=== PATIENT | male | born 1990 | race Caucasian/White ===

== ENCOUNTER 2019-07-26 20:52 | Emergency (ER) | payer MEDICAID ==
--- OUTSIDE RECORDS SUMMARY | 2019-07-26 21:26 | XMS REPORT | Continuity of Care Document ---
:1990 Author Organization [facility] Care Team Providers Name Role Phone SRI AL Consulting Physician SRI AL Primary Care Physician IJEOMA JACQUES Admitting Physician IJEOMA JACQUES Attending Physician Allergies and Intolerances No Known Drug Allergies Medications RxNorm Medication Dose Route Instructions Start Date End Date Status 643891 aripiprazole 5 MG 5 mg oral orally every Active Oral Tablet morning 424927 benztropine 1 mg oral orally 2 times Active mesylate 1 MG Oral per day Tablet 837554 Clomipramine 50 mg oral orally daily Active Hydrochloride 50 MG Oral Capsule 39824 Docusate 100 mg oral orally 2 times Active per day 3640 Doxycycline 100 mg oral orally every Active evening 5492 Hydrocortisone 1 applic rectal rectally 3 times Active per day as needed. (as needed for pain) 4170874 hydrocortisone 30 mg rectal rectally 2 times Active acetate 30 MG per day Rectal Suppository 85337 lamotrigine 50 mg oral orally 2 times Active per day 55624 levothyroxine 50 mcg oral orally daily Active 30249 [place] Carbonate 1200 mg oral orally every day Active at bedtime 974884 Propranolol 10 mg oral orally 2 times Active Hydrochloride 10 MG per day Oral Tablet 934077 Risperidone 1 MG 1 mg oral orally every day Active Oral Tablet at bedtime 37262 Vitamin B 12 1000 mcg oral orally every Active morning Medications At Time Of Discharge RxNorm Medication Dose Route Instructions Start Date End Date Status 052294 aripiprazole 5 MG 5 mg oral orally every Active Oral Tablet morning 440735 benztropine 1 mg oral orally 2 times Active mesylate 1 MG Oral per day Tablet 803845 Clomipramine 50 mg oral orally daily Active Hydrochloride 50 MG Oral Capsule 64304 Docusate 100 mg oral orally 2 times Active per day 3640 Doxycycline 100 mg oral orally every Active evening 5492 Hydrocortisone 1 applic rectal rectally 3 times Active per day as needed. (as needed for pain) 5388409 hydrocortisone 30 mg rectal rectally 2 times Active acetate 30 MG per day Rectal Suppository 24926 lamotrigine 50 mg oral orally 2 times Active per day 83992 levothyroxine 50 mcg oral orally daily Active 06156 [place] Carbonate 1200 mg oral orally every day Active at bedtime 166209 Propranolol 10 mg oral orally 2 times Active Hydrochloride 10 MG per day Oral Tablet 665518 Risperidone 1 MG 1 mg oral orally every day Active Oral Tablet at bedtime 16561 Vitamin B 12 1000 mcg oral orally every Active morning Problems Code Code System Problem Name Start Date End Date Status 522195848 SNOMED-CT Abrasion 01/29/2013 U Active 20347106 SNOMED-CT Mental retardation U U Active 28485897 SNOMED-CT Depressive disorder U Active MUILTP[place] HANDICAPS U Active Procedures No data in the system Results Laboratory Results Order: LITHIUM Specimen Source: Body Site : Legend: (G,H) = High, (GG,HH,CH,#H) = Above High Threshold, (#,L) = Low, (##, CL,#L,LL) = Below Low Threshold, (C,CC,CA,#A,A) = Abnormal LOINC Test Result Flag Range Units Date 1LITHIUM 1.2 0.0-1.5 mmol/L 07/16/2019 11:20 Performing Lab Footnotes:[facility] - [id number] - [address] [place] [address] GABINO BEJARANO Order: VALPROIC ACID Specimen Source: Body Site: Legend: (G,H) = High, (GG,HH,CH,#H) = Above High Threshold, (#,L) = Low, (##,CL,#L,LL) = Below Low Threshold, (C,CC,CA,#A,A) = Abnormal LOINC Test Result Flag Range Units Date 1VALPROIC ACID 47.9 L 50.0-100.0 ug/mL 07/16/2019 11:20 Performing Lab Footnotes:[facility] - [id number] - [address] [place] [address] GABINO Pavon RICCIOMD1 Social History Code Code System Social History Observation Description Dates Observed 323317025 SNOMED CT Current Smoking Status Never smoker UNK AdministrativeGender Sex Assigned At Unknown Vital Signs No data in the system Goals Section No data in the system Health Concerns No data in the systemEncounter Diagnosis Date Code Code System Diagnosis Status Z79.899 ICD10 OT [facility] CURRENT DRUG THERAPY Active Advance Directives HEALTH CARE PROXY Directive Type Effective Date Cashier Ticket Selling Notes Supporting Document Name Address Phone No Directive 02/13/2018 Not Specified Not Specified Not Specified Tish Estrada No Type specified 3:21:00 PM (mother) [phone] *RHIO - CONSENT IS YES Directive Type Effective Date Cashier Ticket Selling Notes Supporting Document Name Address Phone No Directive Type 02/17/2015 7:56:35 Not Specified Not Specified Not Specified None No specified AM Encounters Encounter Diagnosis Location Date OTH [employer]MENT [employer]IC CURRENT DRUG THERAPY [facility] 07/16/2019 Family History No Significant Family History Functional Status No data in the system Immunizations No data in the system Medical Equipment No data in the system Mental Status No data in the system Assessment and Plan Assessments No data in the systemPlan Of Treatment No data in the systemPending Tests No data in the system Hospital Discharge Instructions No data in the system Reason for Visit No data in the system
--- OUTSIDE RECORDS SUMMARY | 2019-07-26 21:26 | XMS REPORT | Continuity of Care Document ---
:1990 Author Organization [facility] Care Team Providers Name Role Phone SRI AL Consulting Physician SRI AL Primary Care Physician IJEOMA JACQUES Admitting Physician IJEOMA JACQUES Attending Physician Allergies and Intolerances No Allergy Data in the System Medications RxNorm Medication Dose Route Instructions Start Date End Date Status 047845 aripiprazole 5 MG 5 mg oral orally every Active Oral Tablet morning 362647 benztropine 1 mg oral orally 2 times Active mesylate 1 MG Oral per day Tablet 217725 Clomipramine 50 mg oral orally daily Active Hydrochloride 50 MG Oral Capsule 54590 Docusate 100 mg oral orally 2 times Active per day 3640 Doxycycline 100 mg oral orally every Active evening 5492 Hydrocortisone 1 applic rectal rectally 3 times Active per day as needed. (as needed for pain) 6194676 hydrocortisone 30 mg rectal rectally 2 times Active acetate 30 MG per day Rectal Suppository 83800 lamotrigine 50 mg oral orally 2 times Active per day 30788 levothyroxine 50 mcg oral orally daily Active 50290 [place] Carbonate 1200 mg oral orally every day Active at bedtime 780161 Propranolol 10 mg oral orally 2 times Active Hydrochloride 10 MG per day Oral Tablet 307160 Risperidone 1 MG 1 mg oral orally every day Active Oral Tablet at bedtime 87563 Vitamin B 12 1000 mcg oral orally every Active morning Medications At Time Of Discharge RxNorm Medication Dose Route Instructions Start Date End Date Status 680783 aripiprazole 5 MG 5 mg oral orally every Active Oral Tablet morning 854772 benztropine 1 mg oral orally 2 times Active mesylate 1 MG Oral per day Tablet 959844 Clomipramine 50 mg oral orally daily Active Hydrochloride 50 MG Oral Capsule 09928 Docusate 100 mg oral orally 2 times Active per day 3640 Doxycycline 100 mg oral orally every Active evening 5492 Hydrocortisone 1 applic rectal rectally 3 times Active per day as needed. (as needed for pain) 4775698 hydrocortisone 30 mg rectal rectally 2 times Active acetate 30 MG per day Rectal Suppository 26529 lamotrigine 50 mg oral orally 2 times Active per day 69751 levothyroxine 50 mcg oral orally daily Active 34170 [place] Carbonate 1200 mg oral orally every day Active at bedtime 620833 Propranolol 10 mg oral orally 2 times Active Hydrochloride 10 MG per day Oral Tablet 789099 Risperidone 1 MG 1 mg oral orally every day Active Oral Tablet at bedtime 69227 Vitamin B 12 1000 mcg oral orally every Active morning Problems Code Code System Problem Name Start Date End Date Status 731541326 SNOMED-CT Abrasion 01/29/2013 U Active 72339246 SNOMED-CT Mental retardation U U Active 23868681 SNOMED-CT Depressive disorder U Active MUILTPLE HANDICAPS U Active Procedures No data in the system Results Laboratory Results Order: CBC Specimen Source: Body Site: Legend: (G,H) = High, (GG,HH,CH,#H) = Above High Threshold, (#,L) = Low, (##,CL, #L,LL) = Below Low Threshold, (C,CC,CA,#A,A) = Abnormal LOINC Test Result Flag Range Units Date 6689-08 1WBC # Bld Auto 7.8 4.8-10.8 K/uL 05/26/2019 07:45 26265-9 1RBC # Bld 3.89 L 4.60-6.20 M/uL 05/26/2019 07:45 718-7 1Hgb Bld-mCnc 12.4 L 13.5-18.0 gm/dL 05/26/2019 07:45 4544-3 1Hct VFr Bld Auto 37.7 L 41.0-53.0 % 05/26/2019 07:45 787-2 1MCV RBC Auto 97.0 80.0-100.0 fL 05/26/2019 07:45 35311-8 1MCHC RBC-mCnc 32.7 30.0-36.5 % 05/26/2019 07:45 47268-5 1MCH RBC Qn 31.8 27.0-34.0 pg 05/26/2019 07:45 77709-2 1RDW RBC 11.9 11.0-15.0 % 05/26/2019 07:45 777-3 1Platelet # Bld Auto 381 130-450 K/uL 05/26/2019 07:45 24000-8 1PMV Bld Auto 6.1 6.0-12.0 fL 05/26/2019 07:45 Performing Lab Footnotes:[facility] - [id number] - [address] [place] [address] GABINO BEJARANO Order: LITHIUM Specimen Source: Body Site: Legend: (G,H) = High, (GG,HH ,CH,#H) = Above High Threshold, (#,L) = Low, (##,CL,#L,LL) = Below Low Threshold , (C,CC,CA,#A,A) = Abnormal LOINC Test Result Flag Range Units Date 3719-2 1Lithium SerPl-mCnc 1.2 0.0-1.5 mmol/L 05/26/2019 07:45 Performing Lab Footnotes:[facility] - [id number] - [address] [place] [address] GABINO BEJARANO Order: TSH Specimen Source: Body Site: Legend: (G,H) = High, (GG,HH,CH, #H) = Above High Threshold, (#,L) = Low, (##,CL,#L,LL) = Below Low Threshold, (C ,CC,CA,#A,A) = Abnormal LOINC Test Result Flag Range Units Date 3016-3 1TSH SerPl-aCnc 2.25 0.34-4.82 uIU/mL 05/26/2019 07:45 Performing Lab Footnotes:[facility] - [id number] - [address] [place] [address] GABINO Pavon RICCIOMD1 Social History Code Code System Social History Observation Description Dates Observed 796348655 SNOMED CT Current Smoking Status Never smoker UNK AdministrativeGender Sex Assigned At Unknown Vital Signs No data in the system Goals Section No data in the system Health Concerns No data in the systemEncounter Diagnosis Date Code Code System Diagnosis Status Z79.899 ICD10 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 Advance Directives HEALTH CARE PROXY Directive Type Effective Date Conference Planner Notes Supporting Document Name Address Phone No Directive 02/13/2018 Not Specified Not Specified Not Specified Tish Estrada No Type specified 3:21:00 PM (mother) [phone] *RHIO - CONSENT IS YES Directive Type Effective Date Conference Planner Notes Supporting Document Name Address Phone No Directive Type 02/17/2015 7:56:35 Not Specified Not Specified Not Specified None No specified AM Encounters Encounter Diagnosis Location Date OTH ALF CURRENT DRUG THERAPY [facility] 05/26/2019 Family History No Significant Family History Functional [...]
[2019-07-26 22:36] LABS: Urine Appearance Clear; Urine Bilirubin Negative (Negative); Urine Blood Negative (Negative); Urine Color Yellow; Urine Glucose Negative (Negative); Urine Ketones Negative (Negative); Urine Nitrite Negative (Negative); Urine Protein Negative (Negative); Urine Specific Gravity 1.009 (1.010-1.030); Urine Urobilinogen Negative (Negative)
[2019-07-26 22:47] LABS: Urine Benzodiazepine Screen None Detected (None Detect); Urine Opiates Screen None Detected (None Detect)
[2019-07-26 23:24] LABS: ABS Eosinophils 0.4 10^3/ul (0-0.6); ABS Monocytes 0.6 10^3/ul (0-0.8); ABS Neutrophils 4.4 10^3/ul (1.5-7.7); Eosinophil % 4.7 %; Hematocrit 33 % (42-52); Hemoglobin 11.6 g/dL (14.0-18.0); Lymphocyte % 27.4 %; Mean Corpuscular HGB Conc 35 g/dL (31-36); Mean Corpuscular Hemoglobin 33 pg (27-31); Mean Corpuscular Volume 96 fL (80-94); Mean Platelet Volume 6.2 fL (7.4-10.4); Platelet Count 296 10^3/uL (150-450); Red Blood Count 3.49 10^6 /uL (4.18-5.48); Red Cell Distribution Width 14 % (10-15); White Blood Count 7.4 10^3/uL (3.5-10.8)
[2019-07-26 23:33] LABS: Albumin 4.2 g/dL (3.2-5.2); CO2 Carbon Dioxide 24 mmol/L (22-32); Calcium 9.1 mg/dL (8.6-10.3); Chloride 104 mmol/L (101-111); Sodium 135 mmol/L (135-145)
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
[2019-07-26 23:38] LABS: Acetaminophen < 15 mcg/mL; Alcohol < 10 mg/dL (<10); Salicylate < 2.50 mg/dL (<30)
[2019-07-26 23:39] LABS: ALT 18 U/L (7-52); Albumin/Globulin Ratio 1.8 (1-3); Alkaline Phosphatase 69 U/L (34-104); BUN/Creatinine Ratio 12.5 (8-20); Blood Urea Nitrogen 12 mg/dL (6-24); EGFR African American 110.5 (>60); EGFR Non-African American 91.4 (>60); Globulin 2.3 g/dL (2-4); Glucose 101 mg/dL (70-100); Total Protein 6.5 g/dL (6.4-8.9)
[2019-07-26 23:41] LABS: Anion Gap 7 mmol/L (2-11)
[2019-07-27 00:07] LABS: TSH (Thyroid Stimulating Horm) 1.48 mcIU/mL (0.34-5.60)
--- NOTE | 2019-07-27 09:42 | ED ---
Progress - Progress Note Progress Note: Receiving sign-out from Dr. Erwin at shift change 0700 07/27/[address] Roberts will write the remaining medication orders. Patient became agitated while in the annex and so he was moved back to ED room 7. Gave patient back his daily scheduled psychiatric medications. Patient will be signed out from Dr. Belen Lindsay to Dr. Neymar Sahu at shfit change on 07/27/2019 at 1900 pending MH transfer. Re-Evaluation - Re-Evaluation First Eval Re-Evaluation Time: 17:13 Comment: Patient was agitated and has been moved back to ED room 7. I will give the patient his scheduled psychiatric medications. Course/Dx - Diagnoses Provider Diagnoses: Aggressive outburst, Homicidal ideation - Provider Notifications Time Discussed With Above Provider: 01:00 Instructed by Provider To: Other - Dr. Wahl and mental health staff have evaluated the patient and have determined him to be appropriate for MHU hold at this time since they were initially going to discharge the patient but I felt that the patient needs to stay as he stated homicidal ideation; pending re-eavl in the morning. Discharge ED - Sign-Out/Discharge Documenting (check all that apply): Sign-Out Patient, Receiving Sign-Out Signing out patient TO: Neymar Sahu Receiving patient FROM: Lisa Erwin - Discharge Plan Condition: Stable Referrals: Dr. justine [Other] (follow up with Dr. Sanz in morning regarding pt. recent aggression) Ting ARRIETA,Joni Dinh [Primary Care Provider] - - Attestation Statements Document Initiated by Scribe: Yes Documenting Scribe: Александр Rao Provider For Whom Nathanielibe is Documenting (Include Credential): Belen Lindsay MD Scribe Attestation: Александр Simmons, scribed for Belen Lindsay MD on 07/27/19 at 1855. Status of Scribe Document: Ready
[2019-07-27] MEDS ORDERED: Divalproex DR TAB(*) 250 MG PO ONE (10:10)
--- NOTE | 2019-07-27 11:12 | PN ---
ED Psychiatric Progress Note Date of Service: 07/27/19 Subjective: ED day #1 for this 29 y.o. single, white, intellectually disabled male brought in by his parents due to recent violent behavior, both at home and in his day treatment program. The patient has significant intellectual limitations and cannot give much history. Objective: young white male with eye glasses and blue patient scrubs sitting in annex room ; poor articulation and difficult to understand; denies SI or HI Assessment: Unspecified Impulse Control DO Plan: The patient requires services through [facility]. We are working with his case investigator to find appropriate placement, as parents unwilling to allow him to return home at this time. D/C to developmentally appropriate facility once this can be arranged. Vital Signs Temp Pulse Resp BP Pulse Ox 99 F 94 15 108/58 100 07/27/19 07:15 07/27/19 07:15 07/26/19 20:59 07/27/19 07:15 07/27/19 07:15 Lab Results - Entire Visit 07/26/19 07/26/19 07/26/19 23:17 23:17 22:20 WBC 7.4 RBC 3.49 L Hgb 11.6 L Hct 33 L MCV 96 H MCH 33 H MCHC 35 RDW 14 Plt Count 296 MPV 6.2 L Neut % (Auto) 59.5 Lymph % (Auto) 27.4 [place] % (Auto) 8.0 Eos % (Auto) 4.7 Baso % (Auto) 0.4 Absolute Neuts (auto) 4.4 Absolute Lymphs (auto) 2.0 Absolute Monos (auto) 0.6 Absolute Eos (auto) 0.4 Absolute Basos (auto) 0.0 Absolute Nucleated RBC 0.0 Nucleated RBC % 0.0 Sodium 135 Potassium TNP Chloride 104 Carbon Dioxide 24 Anion Gap 7 BUN 12 Creatinine 0.96 Est GFR ( Amer) 110.5 Est GFR (Non-Af Amer) 91.4 BUN/Creatinine Ratio 12.5 Glucose 101 H Calcium 9.1 Total Bilirubin 0.30 AST TNP ALT 18 Alkaline Phosphatase 69 Total Protein 6.5 Albumin 4.2 Globulin 2.3 Albumin/Globulin Ratio 1.8 TSH 1.48 Urine Color Urine Appearance Urine pH Ur Specific [place] Urine Protein Urine Ketones Urine Blood Urine Nitrate Urine Bilirubin Urine Urobilinogen Ur Leukocyte Esterase Urine Glucose Salicylates < 2.50 Urine Opiates Screen None detected Acetaminophen < 15 Ur Barbiturates Screen None detected Ur Phencyclidine Scrn None detected Ur Amphetamines Screen None detected U Benzodiazepines Scrn None detected Urine Cocaine Screen None detected U Cannabinoids Screen None detected Serum Alcohol < 10 07/26/19 22:20 WBC RBC Hgb Hct MCV MCH MCHC RDW Plt Count MPV Neut % (Auto) Lymph % (Auto) [place] % (Auto) Eos % (Auto) Baso % (Auto) Absolute Neuts (auto) Absolute Lymphs (auto) Absolute Monos (auto) Absolute Eos (auto) Absolute Basos (auto) Absolute Nucleated RBC Nucleated RBC % Sodium Potassium Chloride Carbon Dioxide Anion Gap BUN Creatinine Est GFR ( Amer) Est GFR (Non-Af Amer) BUN/Creatinine Ratio Glucose Calcium Total Bilirubin AST ALT Alkaline Phosphatase Total Protein Albumin Globulin Albumin/Globulin Ratio TSH Urine Color Yellow Urine Appearance Clear Urine pH 7.0 Ur Specific [place] 1.009 L Urine Protein Negative Urine Ketones Negative Urine Blood Negative Urine Nitrate Negative Urine Bilirubin Negative Urine Urobilinogen Negative Ur Leukocyte Esterase Negative Urine Glucose Negative Salicylates Urine Opiates Screen Acetaminophen Ur Barbiturates Screen Ur Phencyclidine Scrn Ur Amphetamines Screen U Benzodiazepines Scrn Urine Cocaine Screen U Cannabinoids Screen Serum Alcohol
[2019-07-27] MEDS ORDERED: ARIPiprazole TAB* 5 MG PO SCH (12:00)
[2019-07-27] MEDS: risperiDONE TAB* 1 MG PO SCH ×2 (17:21→23:19)
[2019-07-27] MEDS: Divalproex DR TAB(*) 500 MG PO SCH ×2 (17:21→23:19)
[2019-07-27 17:41] LABS: Lithium 0.54 mmol/L (0.6-1.2)
[2019-07-27] MEDS: lamoTRIgine TAB(*) 100 MG PO SCH ×2 (18:09→23:19)
[2019-07-27] MEDS ORDERED: Ziprasidone IM INJ* 20 MG/ML VIAL IM ONE (20:42)
[2019-07-27] MEDS ORDERED: LORazepam INJ* 2 MG/ML 1 ML VIAL IM ONE (20:42)
[2019-07-27] MEDS ORDERED: Lorazepam PYXIS KEY PRN (20:42)
--- NOTE | 2019-07-27 20:47 | ED ---
Progress - Progress Note Progress Note: The patient is a sign-out from Dr. Belen Lindsay MD, to Dr. Neymar Sahu MD , at change of shift at 1900 on 07/27/2019, pending transfer to facility for further psychiatric care. Mental health staff state that the patient cannot go to respite care at [facility], but he is unable to obtain placement at this time. They recommend medication interventions until a plan is in place. Dr. Dimas from psychiatry recommends giving the patient 20mg Geodon and 2mg Ativan to calm the patient down until he can speak with him again tomorrow. The patient is a sign-out from Dr. Neymar Sahu MD, to Dr. Micha Stafford DO, at change of shift at 0700 on 07/28/2019, pending transfer to facility for further psychiatric care. Re-Evaluation - Re-Evaluation First Eval Re-Evaluation Time: 20:40 Comment: Patient agitated in room. Will consult psych. Dr. Dimas recommends Geodon and Ativan. Course/Dx - Course Course Of Treatment: The patient is a sign-out from Dr. Belen Lindsay MD, to Dr. Neymar Sahu MD, at change of shift at 1900 on 07/27/2019, pending transfer to facility for further psychiatric care. Mental health staff state that the patient cannot go to respite care at [facility], but he is unable to obtain placement at this time. They recommend medication interventions until a plan is in place. Dr. Dimas from psychiatry recommends giving the patient 20mg Geodon and 2mg Ativan to calm the patient down until he can speak with him again tomorrow. The patient is a sign-out from Dr. Neymar Sahu MD, to Dr. Micha Stafford DO, at change of shift at 0700 on 07/28/2019, pending transfer to facility for further psychiatric care. - Diagnoses Provider Diagnoses: Aggressive outburst, Homicidal ideation - Provider Notifications Discussed Care Of Patient With: Duglas Dimas - psychiatry Instructed by Provider To: Other - Patient unable to go to respite care, mental health staff recommends medication interventions until patient can be placed [ 1934]. Dr. Dimas from psychiatry recommends giving the patient 20mg Geodon and 2mg Ativan to calm the patient down until he can speak with him again tomorrow [2034]. Discharge ED - Sign-Out/Discharge Documenting (check all that apply): Sign-Out Patient, Receiving Sign-Out Signing out patient TO: Tom Stafford - Patient is a sign-out to Dr. Micha Stafford DO, at 0700 on 07/28/2019, pending MH transfer. Receiving patient FROM: Belen Lindsay - Patient is a sign-out from Dr. Belen Lindsay MD, at 1900 on 07/27/2019, pending transfer to facility for further psychiatric care. - Discharge Plan Condition: Stable Referrals: Dr. justine [Other] (follow up with Dr. Sanz in morning regarding pt. recent aggression) Ting ARRIETA,Joni Dinh [Primary Care Provider] - - Billing Disposition and Condition Condition: STABLE - Attestation Statements Document Initiated by Scribe: Yes Documenting Scribe: Uyen Greenberg Provider For Whom Jam is Documenting (Include Credential): Dr. Neymar Sahu MD Scribe Attestation: Uyen Simmons scribed for Dr. Neymar Sahu MD on 07/28/19 at 0642. Scribe Documentation Reviewed: Yes Provider Attestation: The documentation as recorded by the Uyen escobar accurately reflects the service I personally performed and the decisions made by me, Dr. Neymar Sahu MD Status of Scribe Document: Viewed Procedures - Sedation Patient Received Moderate/Deep Sedation with Procedure: No
[2019-07-27] MEDS ORDERED: Lorazepam PYXIS KEY ONE (20:52)
[2019-07-27] MEDS ORDERED: Lithium Carbonate ER* 450 MG TAB.ER PO SCH (21:00)
[2019-07-28] MEDS ORDERED: Levothyroxine TAB* 75 MCG TAB PO SCH (06:00)
[2019-07-28] MEDS: lamoTRIgine TAB(*) 100 MG PO SCH (08:14)
[2019-07-28] MEDS: risperiDONE TAB* 1 MG PO SCH (08:14)
[2019-07-28] MEDS ORDERED: Divalproex DR TAB(*) 250 MG PO SCH (09:00)
[2019-07-28] MEDS ORDERED: Levothyroxine TAB* 75 MCG TAB PO ONE (10:10)
--- NOTE | 2019-07-28 11:46 | ED ---
Progress - Progress Note Progress Note: Patient signed out from Dr. Sahu upon shift change 07/28/2019 07:00 pending disposition. Course/Dx - Course Course Of Treatment: Patient signed out from Dr. Sahu upon shift change 07/28 07:00 pending disposition. Per nurse, patient has an appointment today 14:00 with his therapist. He will follow up with his therapist. Patient will be discharged to follow up with his therapist at his scheduled appointment. Patient's mother agrees to take patient to the appointment. - Diagnoses Provider Diagnoses: Impulse control disorder Discharge ED - Sign-Out/Discharge Documenting (check all that apply): Patient Departure - Discharge Plan Condition: Stable Disposition: HOME Referrals: Ting ARRIETA,Joni Dinh [Primary Care Provider] - Dr. justine [Other] (follow up with Dr. Sanz in morning regarding pt. recent aggression) Additional Instructions: Follow up with your therapist as scheduled today 07/28/2019. Return to the Emergency Department for new or worsening symptoms. - Attestation Statements Document Initiated by Scribe: Yes Documenting Scribe: Yulia Felix Provider For Whom Jam is Documenting (Include Credential): Micha Stafford DO Scribe Attestation: Yulia Simmons scribed for Micha Stafford DO on 07/28/19 at 1150. Status of Scribe Document: Ready
== END 2019-07-28 11:54 | disposition home or self-care (01) ==
LOC: ED 20:52
DX: R45.6 Violent behavior (principal); R45.850 Homicidal ideations; F63.9 Impulse disorder, unspecified; R62.50 Unspecified lack of expected normal physiological development in childhood; G47.00 Insomnia, unspecified
CPT/HCPCS: 36415; 80053; 80164; 80178; 80307; 80320; 80329; 81003; 84443; 85025; 96372; 99284; A9270-GY; G0480; J2060; J3486